=== PATIENT | male | born 1995 | race Caucasian/White ===

== ENCOUNTER 2017-07-14 12:46 | Emergency (ER) | payer OTHER ==
[~2017-07-14] VITALS: Ht 175.3 cm; Wt 104.5 kg
[2017-07-14 12:47] VITALS: TEMP 36.5; Ht 175.3 cm; Wt 104.5 kg
[2017-07-14] MEDS ORDERED: METHYLPREDNISOLONE 125 MG VIAL IV STA (13:18)
[2017-07-14 13:29] VITALS: PULSE 102; O2SAT 94
--- NOTE | 2017-07-14 13:29 | EMERGENCY ROOM VISIT NOTE ---
History First contact with patient: 12:58 Chief Complaint: SHORTNESS OF BREATH Stated Complaint: SHORTNESS OF BREATH Nursing Triage Summary: pt c/o SHOB x 2 weeks, states no illness noted, denies fever, denies cough, states asthma exacerbation. All lobes inspiratory/expiratory wheezing noted. History of Present Illness The patient is a 22 year old male who presents to the Emergency Room with complaints of shortness of breath and a dry cough that has been going on for several weeks. It was particularly bad this morning, which is what brought him to the emergency department. The patient has a history of asthma. He has tried his nebulizer treatments at home with no relief. He notes that his son recently got a guinea pig, which seemed to have made his symptoms worse. He denies any fever or chills. No sick contacts. Review of Systems 10 system review performed and negative unless noted in HPI or below Past Medical/Surgical History Asthma Social History Smoking Status: Never Smoker Current/Historical Medications Scheduled Albuterol Hfa (Ventolin Hfa), 2-4 PUFFS INH Q6H Ipratropium-Albuterol (Duoneb), 1 TREATMENT INH Q4H Prednisone (Prednisone), 50 MG PO DAILY [Albuterol Nebs], 1 DOSE INH Q4H Physical Exam Vital Signs Date Time Temp Pulse Resp B/P (MAP) Pulse Ox O2 Delivery O2 Flow Rate FiO2 07/14/17 15:33 88 20 148/88 98 07/14/17 14:20 88 20 148/88 98 Nebulizer 07/14/17 13:29 102 20 94 Room Air 07/14/17 13:20 109 07/14/17 13:15 96 Room Air 07/14/17 12:47 36.5 117 18 135/82 96 Room Air Physical Exam GENERAL: 22-year-old male, mildly tachypneic, SKIN: The skin was without rashes, erythema, edema, or bruising. HEAD: Normocephalic atraumatic. MOUTH: Mucous membranes moist. NECK: Supple without nuchal rigidity. No lymphadenopathy. Cervical spine is nontender. No JVD. HEART: Regular rate and rhythm without murmurs gallops or rubs. LUNGS: Diffuse wheezing with decreased breath sounds at the bases bilaterally. Mild tachypnea. ABDOMEN: Positive bowel sounds x 4.Soft, nontender, without organomegaly. No guarding or rebound tenderness. MUSCULOSKELETAL: No muscle atrophy, erythema, or edema noted. Strength 5/5 throughout. NEURO: Patient was alert and oriented to person place and time. Normal sensation to touch. No focal neurological deficits. Medical Decision & Procedures ER Provider Diagnostic Interpretation: Chest x-ray IMPRESSION: No active disease in the chest. Electronically signed by: Virgil Churchill M.D. 07/14/2017 1:49 PM Dictated Date/Time: 07/14/2017 1:49 PM The status of this report is Signed. Draft = Not yet reviewed or approved by Radiologist. Signed = Reviewed and approved by Radiologist. <AttendingPhy></AttendingPhy> <FamilyPhy>No Doctor, Assigned</FamilyPhy> < PrimaryPhy>No Doctor, Assigned</PrimaryPhy> <UnitNumber>[id number]</UnitNumber> <VisitNumber>[id number]</VisitNumber> <PatientName>SAM GONZALEZ</ PatientName> <DateOfBirth>1995</DateOfBirth> <Location>[facility]</Location> < ServiceDate>07/14/17</ServiceDate> <MNE>ESINDI</MNE> <OrderingPhy>Vivian Downing PA-C</OrderingPhy> <OrderingPhyMNE>f rep ord dr love</OrderingPhyMNE> < DictatingPhyMNE>f rep dict dr love</DictatingPhyMNE> <CCListMNE>f rep ct mne</ CCListMNE> <AdmittingPhyMNE>f pt admit dr love</AdmittingPhyMNE> <AttendingPhyMNE >f pt attend dr love</AttendingPhyMNE> <ConsultingPhyMNE>f pt consult dr love</ConsultingPhyMNE> <FamilyPhyMNE>f pt fam dr love</FamilyPhyMNE> <OtherPhyMNE>f pt other dr love</OtherPhyMNE> < PrimaryPhyMNE>f pt prim care dr love</PrimaryPhyMNE> <ReferringPhyMNE>f pt referring dr love</ReferringPhyMNE> Laboratory Results 07/14/17 13:35 Red Blood Count 5.63, Mean Corpuscular Volume 80.6, Mean Corpuscular Hemoglobin 29.0, Mean Corpuscular Hemoglobin Concent 35.9, Mean Platelet Volume 11.2, Neutrophils (%) (Auto) 63.3, Lymphocytes (%) (Auto) 21.5, Monocytes (%) (Auto) 9.4, Eosinophils (%) (Auto) 5.3, Basophils (%) (Auto) 0.2, Neutrophils # (Auto) 5.97, Lymphocytes # (Auto) 2.03, Monocytes # (Auto) 0.89, Eosinophils # (Auto) 0.50, Basophils # (Auto) 0.02 07/14/17 13:35 Test 07/14/17 13:35 White Blood Count 9.44 K/uL (4.8-10.8) Red Blood Count 5.63 M/uL (4.7-6.1) Hemoglobin 16.3 g/dL (14.0-18.0) Hematocrit 45.4 % (42-52) Mean Corpuscular Volume 80.6 fL (80-100) Mean Corpuscular Hemoglobin 29.0 pg (25-34) Mean Corpuscular Hemoglobin Concent 35.9 g/dl (32-36) Platelet Count 183 K/uL (130-400) Mean Platelet Volume 11.2 fL (7.4-10.4) Neutrophils (%) (Auto) 63.3 % Lymphocytes (%) (Auto) 21.5 % Monocytes (%) (Auto) 9.4 % Eosinophils (%) (Auto) 5.3 % Basophils (%) (Auto) 0.2 % Neutrophils # (Auto) 5.97 K/uL (1.4-6.5) Lymphocytes # (Auto) 2.03 K/uL (1.2-3.4) Monocytes # (Auto) 0.89 K/uL (0.11-0.59) Eosinophils # (Auto) 0.50 K/uL (0-0.5) Basophils # (Auto) 0.02 K/uL (0-0.2) RDW Standard Deviation 36.4 fL (36.4-46.3) RDW Coefficient of Variation 12.6 % (11.5-14.5) Immature Granulocyte % (Auto) 0.3 % Immature Granulocyte # (Auto) 0.03 K/uL (0.00-0.02) Anion Gap 10.0 mmol/L (3-11) Est Creatinine Clear Calc Drug Dose 135.7 ml/min Estimated GFR () 121.6 Estimated GFR (Non- 104.9 BUN/Creatinine Ratio 10.1 (10-20) Calcium Level 8.6 mg/dl (8.5-10.1) Medications Administered Medications (Trade) Dose Ordered Sig/Tash Route Start Time Stop Time Status Last Admin Dose Admin Albuterol/ Ipratropium (Duoneb) 12 ml ONE ONCE INH 07/14/17 13:30 07/14/17 13:31 DC 07/14/17 13:29 12 ML Methylprednisolone Sodium Succinate (Solu-Medrol IV) 125 mg NOW STAT IV 07/14/17 13:18 07/14/17 13:20 DC 07/14/17 13:38 125 MG ED Course Patient was seen and examined Vital signs including blood pressure were reviewed medications list was verified with patient Labs were obtained, and a saline lock was established The patient was given an hour-long nebulizer treatment. He was medicated with Solu-Medrol 125 mg IV. Imaging was performed and reviewed Upon reevaluation, the patient was feeling much better. We discussed the results of his workup. He voiced understanding, was comfortable being discharged home. I reviewed discharge instructions the patient. They voiced understanding and had no further questions. Medical Decision Differential diagnosis: Asthma exacerbation, bronchitis, pneumonia, influenza This patient is a 22-year-old male that presents emergency department with shortness of breath and wheezing. He was significantly wheezing on exam. His oxygen was 96% on room air. He did not have any infectious symptoms. His workup reveals no leukocytosis. His chest x-rays clear. This is likely an asthma exacerbation due to environmental factors. He had very good symptomatic relief in the emergency department. His O2 is stable. The patient was given refills for his albuterol per nebulizer. He was also put on a short course of steroids. He'll follow-up with his primary care physician within one week for recheck, and agrees to return to an ER if any worsening symptoms. This chart was completed in part utilizing [employer] Speech Voice Recognition software. Attempts were made to minimize the grammatical errors, random word insertions, pronoun errors and incomplete sentences. Any formal questions or concerns about the content, text or information contained within the body of this dictation should be directly addressed to the provider for clarification. Medication Reconcilliation Current Medication List: was personally reviewed by me Blood Pressure Screening Patient's blood pressure: Normal blood pressure Impression Primary Impression: Asthma with exacerbation Departure Information Dispostion Home / Self-Care Condition GOOD Prescriptions Ipratropium-Albuterol (DUONEB) 3 Ml Nebu 1 TREATMENT INH Q4H for SOB/Wheezing, #30 INHA Prov: Vivian Downing PA-C 07/14/17 Prednisone (Prednisone) 50 Mg Tab 50 MG PO DAILY for 4 Days, #4 TAB Prov: Vivian Downing PA-C 07/14/17 Referrals No Doctor, Assigned (PCP) Patient Instructions My [facility] Additional Instructions You were evaluated in the emergency department for difficulty breathing. This is likely due to an asthma exacerbation. Chest x-ray was negative for pneumonia. Please use nebulizer every 4 hours as needed for difficulty breathing or wheezing Please take the entire course of prednisone Please follow-up with your primary care physician within one week for recheck Try to minimize exacerbating environmental factors such as pets, dust or mold Do not hesitate to return to an emergency department with any worsening symptoms It was a pleasure participating in your care today
[2017-07-14] MEDS ORDERED: ALBUT/IPRATROP 3MG/0.5MG NEB 3 ML VIAL INH ONE (13:30)
--- NOTE | 2017-07-14 13:51 | DIAGNOSTIC IMAGING REPORT ---
SINGLE VIEW CHEST CLINICAL HISTORY: Dyspnea. FINDINGS: An AP, portable, upright chest radiograph is obtained. No prior studies are available for comparison at the time of dictation. The examination is degraded by portable technique and patient rotation. The cardiomediastinal silhouette is unremarkable. The lungs and pleural spaces are clear. No pneumothorax is seen. The bony thorax is grossly intact. IMPRESSION: No active disease in the chest. Electronically signed by: Virgil Churchill M.D. 07/14/2017 1:49 PM Dictated Date/Time: 07/14/2017 1:49 PM
[2017-07-14 14:11] LABS: CALCIUM 8.6 mg/dl (8.5-10.1); POTASSIUM 3.7 mmol/L (3.5-5.1)
[2017-07-14 14:13] LABS: BASO % 0.2 %; BASO ABS # 0.02 K/uL (0-0.2); EOS % 5.3 %; HEMATOCRIT 45.4 % (42-52); HEMOGLOBIN 16.3 g/dL (14.0-18.0); IG# 0.03 K/uL (0.00-0.02); LYMPH % 21.5 %; LYMPH ABS # 2.03 K/uL (1.2-3.4); MEAN CELL VOLUME 80.6 fL (80-100); MEAN CORPUSCULAR HGB CONC 35.9 g/dl (32-36); MEAN PLATELET VOLUME 11.2 fL (7.4-10.4); MONO % 9.4 %; MONO ABS # 0.89 K/uL (0.11-0.59); NEUT % 63.3 %; NEUT ABS # 5.97 K/uL (1.4-6.5); PLATELET COUNT 183 K/uL (130-400); RED CELL DISTRIBUTION WIDTH CV 12.6 % (11.5-14.5); RED CELL DISTRIBUTION WIDTH SD 36.4 fL (36.4-46.3); WHITE BLOOD COUNT 9.44 K/uL (4.8-10.8)
[2017-07-14] MEDS ORDERED: VNTHFA/IN INH (14:21)
[2017-07-14] MEDS ORDERED: ALBUTEROL NEBS INH (14:21)
[2017-07-14] MEDS ORDERED: IPRASOL4 INH (14:38)
[2017-07-14] MEDS ORDERED: PRED50TA PO (14:38)
[2017-07-14 15:33] VITALS: BP 148/88; PULSE 88; O2SAT 98
== END 2017-07-14 15:34 | disposition home or self-care (01) ==
LOC: C.EDB 12:48 → C.EDC 15:34
DX: J45.901 Unspecified asthma with (acute) exacerbation (principal)